=== PATIENT | male | born 1995 | race Caucasian/White ===

== ENCOUNTER 2018-05-06 14:06 | Emergency (ER) | payer MEDICAID ==
[~2018-05-06] VITALS: Ht 172.7 cm; Wt 59.0 kg
[2018-05-06 14:10] VITALS: BP_SYST 121
--- NOTE | 2018-05-06 14:10 | NUR ---
Patient to ER bed 4 to gown for evaluation. Side rails up.
[2018-05-06] MEDS ORDERED: NACL 0.9% 1,000 ML IV ONE (14:15)
[2018-05-06] MEDS ORDERED: LORazepam 2 MG/ML VIAL (FOR ER USE) IVP ONE (14:15)
--- NOTE | 2018-05-06 14:15 | NUR ---
ER Dr. Spring at bedside examining patient.
[2018-05-06] MEDS ORDERED: MORPHINE 4 MG/ML INJ. SYRINGE IVP ONE (14:30)
--- NOTE | 2018-05-06 14:51 | NUR ---
Medicated per MD orders. IVF infusing with no s/s of infiltration at this time. Will cont to monitor
[2018-05-06 15:03] LABS: ALANINE AMINOTRANSFERASE 27 U/L (12-78); ALBUMIN 4.4 g/dL (3.4-4.8); ANION GAP 11 (5-15); ASPARTATE AMINOTRANSFERASE 14 U/L (10-37); CALCIUM 9.4 mg/dL (8.4-11.0); CHLORIDE 108 mmol/L (98-107); CREATININE 0.99 mg/dL (0.55-1.30); GLUCOSE 98 mg/dL (70-99); POTASSIUM 3.7 mmol/L (3.5-5.1); SODIUM SERUM 140 mmol/L (136-145); TOTAL BILIRUBIN 0.8 mg/dL (0.0-1.0); UREA NITROGEN, BLOOD 12 mg/dL (8-21); WHITE BLOOD COUNT (AUTO) 8.4 K/uL (4.5-11.0)
[2018-05-06 15:11] LABS: BASOPHILS # (AUTO) 0.1 K/uL (0.0-0.2); BASOPHILS % (AUTO) 1.4 % (0.0-2.0); EOSINOPHILS # (AUTO) 0.1 K/uL (0.0-0.4); EOSINOPHILS % (AUTO) 0.6 % (0.0-4.0); HEMOGLOBIN 14.5 g/dL (14.0-18.0); LYMPHOCYTES % (AUTO) 24.4 % (20.5-51.5); MEAN CORPUSCULAR HEMOGLOBIN 30 pg (27-31); MEAN CORPUSCULAR HGB CONC 34 % (32-36); MEAN CORPUSCULAR VOLUME 88 fL (79.0-98.0); MONOCYTES # (AUTO) 0.6 K/uL (0.0-1.0); MONOCYTES % (AUTO) 6.6 % (1.7-9.3); NEUTROPHILS # (AUTO) 5.6 K/uL (1.8-7.7); PLATELET COUNT (AUTO) 353 K/uL (130-430); RED BLOOD CELL COUNT(AUTO) 4.88 MIL/uL (4.2-6.2); RED CELL DISTRIBUTION WIDTH 13.5 % (9.0-15.0)
[2018-05-06 15:13] LABS: GFR AFRICAN AMERICAN 124 mL/min (>90)
[2018-05-06 15:14] LABS: ACETAMINOPHEN < 1 ug/mL (1-30); ALCOHOL, BLOOD < 3 mg/dL (<10)
[2018-05-06 15:58] VITALS: BP_SYST 119
--- NOTE | 2018-05-06 15:58 | NUR ---
Patient given written and verbal discharge instructions and verbalizes understanding. ER MD discussed with patient the results and treatment provided. Patient in stable condition. ID arm band removed. IV catheter removed intact and dressing applied, no active bleeding. No Rx given. Patient educated on pain management and to follow up with PMD. Pain Scale 0. Opportunity for questions provided and answered. Medication side effect fact sheet provided.
== END 2018-05-06 15:58 | disposition home or self-care (01) ==
LOC: SED 14:06
DX: F15.10 Other stimulant abuse, uncomplicated (principal); R03.0 Elevated blood-pressure reading, without diagnosis of hypertension
CPT/HCPCS: 36415; 80053; 85025; 93005; 96361; 96374; 99285; G0480; G0481; G0482; J2060; J7030; J2270

== ENCOUNTER 2018-05-09 01:28 | Emergency (ER) | payer MEDICAID ==
[~2018-05-09] VITALS: Ht 172.7 cm; Wt 59.0 kg
[2018-05-09 01:37] VITALS: BP_SYST 121
--- NOTE | 2018-05-09 01:37 | NUR ---
Pt biba to bed 8 for evaluation
--- NOTE | 2018-05-09 01:40 | NUR ---
Patient brought to ED via BLS for drug intoxication. Patient admits to snorting crystal meth. Hx of substance abuse. Patient states, "I feel like I cant swallow". No audible stridor or wheezing. -CP -SOB -N/V/D. Afebrile
[2018-05-09] MEDS ORDERED: ONDANSETRON HCL 4 MG/2 ML VIAL IVP ONE (01:45)
[2018-05-09] MEDS ORDERED: NACL 0.9% 1,000 ML IV ONE ×2 (01:45→02:00)
--- NOTE | 2018-05-09 01:45 | NUR ---
ED MD Adams at bedside for medical evaluation.
--- NOTE | 2018-05-09 02:00 | NUR ---
#18 gauge angiocath placed to RAC. Use of asceptic technique. Opsite placed over site. Blood return noted. Flushed with 10 cc of normal saline. No evidence of infiltration noted. Patient tolerated well.
[2018-05-09] MEDS ORDERED: DIPHENHYDRAMINE INJ 50 MG/ML VIAL IVP ONE (03:15)
--- NOTE | 2018-05-09 04:00 | NUR ---
Patient sleeping. No acute distress noted. Respirations even and unlabored.
--- NOTE | 2018-05-09 06:25 | NUR ---
Patient offered breakfast tray. Sitting up eating independently. Patient ate 100% of tray.
[2018-05-09 06:30] VITALS: BP_SYST 131
== END 2018-05-09 06:30 | disposition home or self-care (01) ==
LOC: SED 01:28
DX: F15.10 Other stimulant abuse, uncomplicated (principal)
CPT/HCPCS: 96374; 96375; 99284; J1200; J2405; J7030

== ENCOUNTER 2018-06-30 13:54 | Emergency (ER) | payer MEDICAID, OTHER ==
[~2018-06-30] VITALS: Ht 175.3 cm; Wt 59.0 kg
[2018-06-30 14:00] VITALS: BP_SYST 133
[2018-06-30 15:21] LABS: CALCIUM 8.9 mg/dL (8.4-11.0); CREATININE 0.96 mg/dL (0.55-1.30); POTASSIUM 3.8 mmol/L (3.5-5.1)
[2018-06-30 15:27] LABS: ALBUMIN 3.9 g/dL (3.4-4.8); TOTAL BILIRUBIN 0.3 mg/dL (0.0-1.0)
[2018-06-30 15:28] LABS: BASOPHILS # (AUTO) 0.1 K/uL (0.0-0.2); BASOPHILS % (AUTO) 1.9 % (0.0-2.0); EOSINOPHILS # (AUTO) 0.1 K/uL (0.0-0.4); EOSINOPHILS % (AUTO) 1.4 % (0.0-4.0); HEMATOCRIT 40.8 % (36-54); HEMOGLOBIN 13.9 g/dL (14.0-18.0); LYMPHOCYTES # (AUTO) 2.2 K/uL (1.0-5.5); LYMPHOCYTES % (AUTO) 32.5 % (20.5-51.5); MEAN CORPUSCULAR HEMOGLOBIN 30 pg (27-31); MEAN CORPUSCULAR HGB CONC 34 % (32-36); MEAN CORPUSCULAR VOLUME 88 fL (79.0-98.0); MONOCYTES # (AUTO) 0.4 K/uL (0.0-1.0); MONOCYTES % (AUTO) 5.9 % (1.7-9.3); NEUTROPHILS # (AUTO) 4.1 K/uL (1.8-7.7); NEUTROPHILS % (AUTO) 58.3 % (40.0-70.0); PLATELET COUNT (AUTO) 314 K/uL (130-430); RED BLOOD CELL COUNT(AUTO) 4.62 MIL/uL (4.2-6.2); RED CELL DISTRIBUTION WIDTH 13.1 % (9.0-15.0); WHITE BLOOD COUNT (AUTO) 6.9 K/uL (4.5-11.0)
[2018-06-30 16:10] VITALS: BP_SYST 130
== END 2018-06-30 16:10 | disposition home or self-care (01) ==
LOC: SED 13:54
DX: K92.2 Gastrointestinal hemorrhage, unspecified (principal); K59.00 Constipation, unspecified; F15.90 Other stimulant use, unspecified, uncomplicated
CPT/HCPCS: 36415; 74018; 80053; 85025; 99285

== ENCOUNTER 2020-01-16 11:54 | Emergency (ER) | payer OTHER ==
[~2020-01-16] VITALS: Ht 172.7 cm; Wt 68.0 kg
[2020-01-16 11:57] VITALS: BP_SYST 138
[2020-01-16 12:24] VITALS: BP_SYST 132
== END 2020-01-16 12:24 | disposition home or self-care (01) ==
LOC: EEVIPCON 11:54 → SED 11:54
DX: J02.8 Acute pharyngitis due to other specified organisms (principal); B97.89 Other viral agents as the cause of diseases classified elsewhere; R05 Cough; F15.90 Other stimulant use, unspecified, uncomplicated; F17.210 Nicotine dependence, cigarettes, uncomplicated; Z71.6 Tobacco abuse counseling; Z20.828 Contact with and (suspected) exposure to other viral communicable diseases
CPT/HCPCS: 99283; J7030

== ENCOUNTER 2020-01-16 21:12 | Emergency (ER) | payer MEDICAID, OTHER ==
[~2020-01-16] VITALS: Ht 167.6 cm; Wt 72.6 kg
[2020-01-16 21:15] VITALS: BP_SYST 154
[2020-01-16 21:51] VITALS: BP_SYST 154
== END 2020-01-16 21:51 | disposition home or self-care (01) ==
LOC: SED 21:12
DX: J02.8 Acute pharyngitis due to other specified organisms (principal); B97.89 Other viral agents as the cause of diseases classified elsewhere; F15.10 Other stimulant abuse, uncomplicated; F17.210 Nicotine dependence, cigarettes, uncomplicated
CPT/HCPCS: 36415; 86403; 86710; 87081; 99283

== ENCOUNTER 2020-05-24 10:14 | Emergency (ER) | payer MEDICAID, OTHER ==
[~2020-05-24] VITALS: Ht 172.7 cm; Wt 68.0 kg
[2020-05-24 10:17] VITALS: BP_SYST 130
--- NOTE | 2020-05-24 10:20 | NUR ---
Placed in room 2 . Placed on ordnance engineer, blood pressure machine and pulse oximeter. To gown for exam. Side rails up.
--- NOTE | 2020-05-24 10:25 | NUR ---
Pt walked in to ER with c/o anxiety and chest pain. V/S stable, pt is afebrile. Currently resting in bed, will continue to monitor.
[2020-05-24 10:29] VITALS: BP_SYST 130
--- NOTE | 2020-05-24 10:30 | NUR ---
EKG performed at BS by RN. Physician given copy of EKG for review.
--- NOTE | 2020-05-24 10:35 | NUR ---
Jose Cruz edmonds in [facility] - 05/24/20 at 1056 by [email or web address] BRYAN Pulliam at bedside examining patient.
--- NOTE | 2020-05-24 10:47 | NUR ---
Pt LWBS at this time.
== END 2020-05-24 10:47 | disposition left against medical advice (07) ==
LOC: SED 10:14
DX: F41.9 Anxiety disorder, unspecified (principal); Z53.21 Procedure and treatment not carried out due to patient leaving prior to being seen by health care provider
CPT/HCPCS: 93005

== ENCOUNTER 2020-06-19 18:26 | Emergency (ER) | payer OTHER ==
[~2020-06-19] VITALS: Ht 172.7 cm; Wt 68.0 kg
[2020-06-19 18:30] VITALS: BP_SYST 152
[2020-06-19] MEDS: BENZTROPINE MESYLATE 2 MG/ 2 ML AMP IM ONE (21:00)
[2020-06-19] MEDS: NACL 0.9% 1,000 ML IV ONE ×2 (21:01→23:04)
[2020-06-19] MEDS: HALOPERIDOL LACTATE 5 MG/ML VIAL IVP ONE (21:02)
[2020-06-19] MEDS: LORazepam 2 MG/ML VIAL IVP ONE (21:03)
[2020-06-19 21:17] LABS: ANION GAP 9 (5-15); CHLORIDE 107 mmol/L (98-107); CREATININE 1.11 mg/dL (0.55-1.30); GLUCOSE 128 mg/dL (70-99); POTASSIUM 3.3 mmol/L (3.5-5.1); SODIUM SERUM 140 mmol/L (136-145); UREA NITROGEN, BLOOD 9 mg/dL (8-21)
[2020-06-19 21:21] LABS: BASOPHILS % (AUTO) 0.5 % (0.0-2.0); EOSINOPHILS # (AUTO) 0.2 K/uL (0.0-0.4); EOSINOPHILS % (AUTO) 1.9 % (0.0-4.0); HEMATOCRIT 42.4 % (36-54); HEMOGLOBIN 14.5 g/dL (14.0-18.0); LYMPHOCYTES # (AUTO) 3.4 K/uL (1.0-5.5); LYMPHOCYTES % (AUTO) 39.7 % (20.5-51.5); MEAN CORPUSCULAR HEMOGLOBIN 30 pg (27-31); MEAN CORPUSCULAR HGB CONC 34 % (32-36); MEAN CORPUSCULAR VOLUME 88 fL (79.0-98.0); MONOCYTES # (AUTO) 0.6 K/uL (0.0-1.0); MONOCYTES % (AUTO) 7.2 % (1.7-9.3); NEUTROPHILS # (AUTO) 4.4 K/uL (1.8-7.7); NEUTROPHILS % (AUTO) 50.7 % (40.0-70.0); PLATELET COUNT (AUTO) 290 K/uL (130-430); RED BLOOD CELL COUNT(AUTO) 4.83 MIL/uL (4.2-6.2); RED CELL DISTRIBUTION WIDTH 13.8 % (9.0-15.0); WHITE BLOOD COUNT (AUTO) 8.7 K/uL (4.8-10.8)
[2020-06-19 21:24] LABS: ALANINE AMINOTRANSFERASE 18 U/L (12-78); ALBUMIN 4.4 g/dL (3.4-4.8); ASPARTATE AMINOTRANSFERASE 17 U/L (10-37); TOTAL BILIRUBIN 0.4 mg/dL (0.0-1.0)
[2020-06-19 21:27] LABS: ALCOHOL, BLOOD < 3 mg/dL (<10); GFR AFRICAN AMERICAN 107 mL/min (>90)
[2020-06-19 23:46] LABS: BILIRUBIN,URINE NEGATIVE (NEGATIVE); BLOOD, URINE NEGATIVE (NEGATIVE); CLARITY/URINE CLEAR (CLEAR); COLOR,URINE YELLOW (YELLOW); GLUCOSE,URINE NEGATIVE (NEGATIVE); KETONES,URINE NEGATIVE (NEGATIVE); LEUKOCYTE ESTERASE ,URINE NEGATIVE (NEGATIVE); NITRITE, URINE NEGATIVE (NEGATIVE); PROTEIN URINE NEGATIVE (NEGATIVE); UROBILINOGEN,URINE 0.2 (0.2-1.0)
[2020-06-19 23:56] LABS: BARBITURATE, URINE NEGATIVE (NEG <=200); BENZODIAZEPINE, URINE NEGATIVE (NEG <=150); CANNABINOID, URINE NEGATIVE (NEG <=50); COCAINE, URINE NEGATIVE (NEG <=150); METHAMPHETAMINES SCREEN,URINE POSITIVE (NEG <=500); OPIATE, URINE NEGATIVE (NEG <=100); PHENCYCLIDINE SCREEN,URINE NEGATIVE (NEG <=25); UR TRICYCLIC ANTIDEPRESSANTS NEGATIVE (NEG <=300); URINE AMPHETAMINE POSITIVE (NEG <=500); URINE METHADONE NEGATIVE (NEG <=200); URINE OXYCODONE SCREEN NEGATIVE (NEG <=100); URINE PROPOXYPHENE SCREEN NEGATIVE (NEG <=300)
[2020-06-20 04:02] VITALS: BP_SYST 115
== END 2020-06-20 04:41 | disposition left against medical advice (07) ==
LOC: SED 18:26
DX: R45.1 Restlessness and agitation (principal)
CPT/HCPCS: 36415; 71045; 80053; 80307; 81003; 82550; 84484; 85025; 93005; 96361; 96374; 96375; 99285; G0482; J0515; J1630; J2060; J7030

== ENCOUNTER 2020-08-13 11:16 | Emergency (ER) | payer OTHER ==
[~2020-08-13] VITALS: Ht 172.7 cm; Wt 68.0 kg
[2020-08-13 11:22] VITALS: BP_SYST 132
--- NOTE | 2020-08-13 11:29 | NUR ---
Patient to ER bed 6 to gown for evaluation. Side rails up. Report given to GEO OSPINA.
--- NOTE | 2020-08-13 11:45 | NUR ---
ER Dr. Gomez at bedside examining patient.
--- NOTE | 2020-08-13 11:48 | NUR ---
Patient presented C/O blood in stool. Patient ambulatory to ER A&Ox4, skin pink & warm, denies N/V/D, pain 5/10. Patient states he had blood in stool x3 with decreased appetite.
[2020-08-13 11:58] VITALS: BP_SYST 131
--- NOTE | 2020-08-13 11:59 | NUR ---
Patient given written and verbal discharge instructions and verbalizes understanding. ER MD discussed with patient the results and treatment provided. Patient in stable condition. ID arm band removed. Patient educated on pain management and to follow up with PMD. Pain Scale 3/10. Opportunity for questions provided and answered. Medication side effect fact sheet provided. Office number for GI MD provided
== END 2020-08-13 11:58 | disposition home or self-care (01) ==
LOC: SED 11:16
DX: K62.5 Hemorrhage of anus and rectum (principal); F15.90 Other stimulant use, unspecified, uncomplicated
CPT/HCPCS: 99281

== ENCOUNTER 2020-09-01 15:01 | Emergency (ER) | payer OTHER, SELFPAY ==
[~2020-09-01] VITALS: Ht 172.7 cm; Wt 68.0 kg
[2020-09-01 15:15] VITALS: BP_SYST 110
[2020-09-01 15:45] VITALS: BP_SYST 110
== END 2020-09-01 15:45 | disposition home or self-care (01) ==
LOC: SED 15:01
DX: R21 Rash and other nonspecific skin eruption (principal)
CPT/HCPCS: 99283

== ENCOUNTER 2024-02-24 08:29 | Emergency (ER) | payer MEDICAID, OTHER ==
[~2024-02-24] VITALS: Ht 172.7 cm; Wt 68.0 kg
[2024-02-24 08:32] VITALS: BP_SYST 112; PULSE 60; RESP 18; TEMP 98.6; O2SAT 95
[2024-02-24 09:27] VITALS: BP_SYST 115; PULSE 62; RESP 16; TEMP 98.6; O2SAT 95
== END 2024-02-24 09:28 ==
LOC: SED 08:29
DX: Z02.89 Encounter for other administrative examinations (principal)
CPT/HCPCS: 99283